=== PATIENT | female | born 1965 | race Asian ===

== ENCOUNTER 2019-06-05 20:41 | Emergency (ER) | payer OTHER ==
[2019-06-05] MEDS: NEOMYC/POLYMYX/BACIT 0.9 GM OINT TOP (22:49)
[2019-06-05] MEDS: DIPHTH/TET/ACEL PERTUSS (ADULT) 0.5 ML VIAL IM* (22:50)
== END 2019-06-05 23:02 | disposition home or self-care (01) ==
LOC: E/R 20:41
DX: T22.212A Burn of second degree of left forearm, initial encounter (principal); T21.22XA Burn of second degree of abdominal wall, initial encounter; T31.0 Burns involving less than 10% of body surface; X12.XXXA Contact with other hot fluids, initial encounter; Y92.9 Unspecified place or not applicable; Z23 Encounter for immunization
CPT/HCPCS: 16020; 90471; 90715; 99283-25

== ENCOUNTER 2019-06-08 21:10 | Emergency (ER) | payer OTHER ==
[2019-06-08] MEDS ORDERED: SILVER SULFADIAZINE 1% 400 GM CR TOP (22:30)
[2019-06-08] MEDS: SILVER SULFADIAZINE 1% 25 GM CR TOP (22:44)
[2019-06-08] MEDS: IBUPROFEN 600 MG TAB PO (22:44)
== END 2019-06-08 23:13 | disposition home or self-care (01) ==
LOC: FTE 21:10
DX: T22.212A Burn of second degree of left forearm, initial encounter (principal); T21.32XA Burn of third degree of abdominal wall, initial encounter; X11.8XXA Contact with other hot tap-water, initial encounter
CPT/HCPCS: 16020; 99283-25